=== PATIENT | female | born 1985 | race African-American/Black ===

== ENCOUNTER 2016-12-01 10:31 | Emergency (ER) | payer BC, OTHER ==
[~2016-12-01] VITALS: Ht 172.7 cm; Wt 90.7 kg
[~2016-12-01 10:31] MED LIST: AUGMENTIN 875875 MG PO; IBUPROFEN 600600 M1; LAMICTAL XR100 MG PO; NORCO 5-325 TA1 EACH; PROVENTIL HFA6.7 G1 INH; TESSALON200 MG PO; ZPAK PO
[2016-12-01 10:49] LABS: URINE BILIRUBIN 3+ (Negative); URINE BLOOD 3+ (Negative); URINE GLUCOSE-RANDOM* TRACE (Negative); URINE KETONES NEGATIVE (Negative); URINE NITRITE NEGATIVE (Negative); URINE PROTEIN (DIPSTICK) 1+ (Negative); URINE SPECIFIC GRAVITY 1.025 (1.003-1.035)
[2016-12-01 10:52] LABS: ICTOTEST (BILI CONFIRMATORY) Positive (Negative); URINE COLOR DARK YELLOW
[2016-12-01 10:58] LABS: SQUAMOUS >10 Many /LPF (0-3)
[2016-12-01 10:59] LABS: AMORPHOUS URATES Few /LPF (None Seen); CALCIUM OXALATE 0-3 Few /LPF (None Seen); CASTS None Seen /LPF (None Seen); URINE RBC >20 Many /HPF (0-2)
[2016-12-01 11:02] LABS: URINE WBC 6-15 Few /HPF (0-5)
[2016-12-01 11:10] LABS: HEMATOCRIT 31.5 % (37.0-47.0); HEMOGLOBIN 10.7 gm/dL (12.0-15.0); MCH 26.4 pg (26.0-34.0); MCV 77.6 fL (80.0-100.0); PLATELET COUNT 412 thou/uL (150-400); RBC 4.06 mil/uL (4.20-5.00); RDW 17.1 % (10.5-14.5); WBC 8.9 thou/uL (4.0-11.0)
[2016-12-01 11:11] LABS: MANUAL DIFF YES
[2016-12-01 11:19] LABS: CALCIUM 8.8 mg/dL (8.5-10.1); CREATININE 0.9 mg/dL (0.6-1.0); POTASSIUM 4.5 mmol/L (3.5-5.1)
[2016-12-01 11:26] LABS: TOTAL BILIRUBIN 6.3 mg/dL (<0.1-1.0)
[2016-12-01 11:27] LABS: TOTAL PROTEIN 7.2 g/dL (6.4-8.2)
[2016-12-01 11:43] LABS: ABSOLUTE NEUTROPHILS 4.5 thou/uL (1.4-8.2); ANISOCYTOSIS 1+; TOTAL CELL COUNT 100
[2016-12-01 14:15] LABS: INR 1.4; PROTIME 14.7 Seconds (9.3-11.4)
[2016-12-01] MEDS ORDERED: LEVSIN0.125 MG PO (15:52)
[2016-12-01] MEDS ORDERED: MOBIC7.5 MG PO (15:56)
[2016-12-01 16:08] VITALS: BP 117/70
== END 2016-12-01 16:10 | disposition home or self-care (01) ==
LOC: ER 10:31
PROVIDERS: Physician Assistant
DX: R94.5 Abnormal results of liver function studies (principal); E80.7 Disorder of bilirubin metabolism, unspecified; R74.8 Abnormal levels of other serum enzymes; R31.9 Hematuria, unspecified; G40.909 Epilepsy, unspecified, not intractable, without status epilepticus

== ENCOUNTER 2021-02-05 08:33 | Emergency (ER) | payer OTHER ==
[~2021-02-05] VITALS: Ht 157.5 cm; Wt 90.7 kg
[~2021-02-05 08:33] MED LIST changes: +LEVSIN0.125 MG PO; +MOBIC7.5 MG PO
[2021-02-05 09:49] LABS: ABSOLUTE NEUTROPHILS 1.9 thou/uL (1.4-8.2); BASOPHILS 1.8 % (0.0-2.0); EOSINOPHILS 2.1 % (0.0-3.0); HEMATOCRIT 34.1 % (37.0-47.0); HEMOGLOBIN 10.6 gm/dL (12.0-15.0); LYMPHOCYTES 48.4 % (24.0-44.0); MCH 24.8 pg (26.0-34.0); MCHC 31.2 g/dL (28.0-37.0); MCV 79.6 fL (80.0-100.0); MONOCYTES 7.7 % (1.0-8.0); PLATELET COUNT 347 thou/uL (150-400); RBC 4.29 mil/uL (4.20-5.00); RDW 15.7 % (10.5-14.5); WBC 4.8 thou/uL (4.0-11.0)
[2021-02-05 09:57] LABS: ANION GAP 11 mmol/L (7-16); BUN 8 mg/dL (7-18); CALCIUM 8.9 mg/dL (8.5-10.1); CHLORIDE 105 mmol/L (98-107); CO2 23 mmol/L (21-32); GLUCOSE 97 mg/dL (74-106); POTASSIUM 4.3 mmol/L (3.5-5.1); SODIUM 139 mmol/L (136-145)
[2021-02-05 10:03] LABS: ALBUMIN 3.6 g/dL (3.4-5.0); DIRECT BILIRUBIN < 0.1 mg/dL (<0.1-0.2); LIPASE 90 U/L (73-393); SGOT 22 U/L (15-37); SGPT 28 U/L (14-59); TOTAL BILIRUBIN 0.1 mg/dL (0.2-1.0); TOTAL PROTEIN 7.8 g/dL (6.4-8.2)
--- NOTE | 2021-02-05 12:41 | EKG ---
[address] [place] [address] ELECTROCARDIOGRAM REPORT Name: LOGAN ARCEO Room #: REG SIN Monreal#: [id number] Admission: 02/05/21 Attend Phys: Discharge: Date of : 81 Report #: [id number] [facility] ED Test Date: 2021-02-05 Test Time: 08:39:07 Pat Name: LOGAN ARCEO Department: Room: Gender: F [employer] Consultant: DIYA : 1985 Requested By: Steven Aguilar Order Number: [id number] MD: Isma Perez Measurements Intervals [place] Rate: 91 P: 45 WI: 148 QRS: -6 QRSD: 84 T: 25 QT: 355 QTc: 437 Interpretive Statements Sinus rhythm LVH by voltage No previous ECG available for comparison Electronically Signed On 02-05-2021 12:41:16 CDT by Isma Perez [email or web address] <ELECTRONICALLY SIGNED> By: Isma Perez MD, [facility] 02/05/21 1241 0839 [id number] Isma Perez MD, FACC /EPI
[2021-02-05 12:47] VITALS: BP 135/89
== END 2021-02-05 12:53 | disposition home or self-care (01) ==
LOC: ER 08:33
PROVIDERS: Student in an Organized Health Care Education/Training Program
DX: G43.909 Migraine, unspecified, not intractable, without status migrainosus (principal); G40.909 Epilepsy, unspecified, not intractable, without status epilepticus; Z20.822 Contact with and (suspected) exposure to COVID-19; Z79.899 Other long term (current) drug therapy